=== PATIENT | female | born 1990 | race Caucasian/White ===

== ENCOUNTER 2020-11-02 10:22 | Emergency (ER) | payer OTHER ==
[~2020-11-02] VITALS: Ht 170.2 cm; Wt 65.8 kg
[~2020-11-02 10:22] MED LIST: VITAFOL-OB+DHA1 EACH PO
[2020-11-02] MEDS ORDERED: ARIPIPRAZOLE2 MG PO (10:34)
[2020-11-02] MEDS ORDERED: NITROFURANTOIN100 M1 PO (10:35)
== END 2020-11-02 13:29 | disposition home or self-care (01) ==
LOC: ED 10:22
DX: J06.9 Acute upper respiratory infection, unspecified (principal); Z20.822 Contact with and (suspected) exposure to COVID-19; Z87.891 Personal history of nicotine dependence; Z88.0 Allergy status to penicillin; Z88.2 Allergy status to sulfonamides; Z79.899 Other long term (current) drug therapy
CPT/HCPCS: 71045; 81001; 84703; 87502; 99285-25; C9803; U0003